=== PATIENT | male | born 1985 | race Caucasian/White ===

== ENCOUNTER 2019-08-12 19:57 | Observation (INO) | payer OTHER ==
[~2019-08-12] VITALS: Ht 179.1 cm; Wt 95.7 kg
[2019-08-12 20:37] LABS: BASO # 0.1 10^3/uL (0.0-0.2); BASO % 0.7 % (0.0-1.0); EOS # 0.2 10^3/uL (0.0-0.5); EOS % 1.3 % (0.0-3.0); HEMATOCRIT 40.7 % (42.0-52.0); LYMPH # 1.8 10^3/uL (1.5-5.0); LYMPH % 14.5 % (24.0-44.0); MEAN CORPUSCULAR HGB CONC 34.4 g/dl (32.0-36.5); MEAN CORPUSCULAR VOLUME 87.2 fl (80.0-96.0); MONO # 0.9 10^3/uL (0.0-0.8); MONO % 6.8 % (0.0-5.0); NEUTROPHILS # 9.6 10^3/uL (1.5-8.5); NEUTROPHILS % 76.4 % (36.0-66.0); PLATELET COUNT, AUTOMATED 270 10^3/uL (150-450); RED BLOOD COUNT 4.67 10^6/uL (4.30-6.10); WHITE BLOOD COUNT 12.5 10^3/uL (4.0-10.0)
--- NOTE | 2019-08-12 20:53 | REPVR ---
PROCEDURE INFORMATION: Exam: CT Head Without Contrast Exam date and time: 08/12/2019 8:28 PM Age: 34 years old Clinical indication: Coma or unconsciousness; Additional info: Unresponsive TECHNIQUE: Imaging protocol: Computed tomography of the head without contrast. Radiation optimization: All CT scans at this facility use at least one of these dose optimization techniques: automated exposure control; mA and/or kV adjustment per patient size (includes targeted exams where dose is matched to clinical indication); or iterative reconstruction. COMPARISON: No relevant prior studies available. FINDINGS: Brain: Normal. No hemorrhage. Unremarkable white matter. No mass effect. Ventricles: Normal. No ventriculomegaly. Bones/joints: Unremarkable. No acute fracture. Sinuses: Visualized sinuses are unremarkable. No fluid levels. Mastoid air cells: Visualized mastoid air cells are well aerated. Soft tissues: Unremarkable. IMPRESSION: No acute intracranial abnormality. Electronically signed by: Rayray Eldridge On 08/12/2019 20:52:31 PM
[2019-08-12] MEDS: NS 1,000 ML IV SCH (21:18)
[2019-08-12 21:34] LABS: ACETAMINOPHEN LEVEL 7.2 UG/ML (10.0-30.0); ALBUMIN 2.4 GM/DL (3.2-5.2); ALT/SGPT 23 U/L (12-78); BILIRUBIN,DIRECT < 0.1 MG/DL (0.0-0.2); BILIRUBIN,TOTAL 0.1 MG/DL (0.2-1.0); BLOOD UREA NITROGEN 7 MG/DL (7-18); CALCIUM LEVEL 5.5 MG/DL (8.5-10.1); CARBON DIOXIDE LEVEL 20 MEQ/L (21-32); CHLORIDE LEVEL 121 MEQ/L (98-107); CPK CREATINE PHOSPHOKINASE 164 U/L (39-308); CREATININE FOR GFR 0.55 MG/DL (0.70-1.30); ETHYL ALCOHOL (ETHANOL) < 0.003 % (0.000-0.010); GLOMERULAR FILTRATION RATE > 60.0 (>60); GLUCOSE, FASTING 81 MG/DL (70-100); POTASSIUM SERUM 2.8 MEQ/L (3.5-5.1); SODIUM LEVEL 147 MEQ/L (136-145); TOTAL PROTEIN 4.1 GM/DL (6.4-8.2)
[2019-08-12] MEDS ORDERED: CALCIUM GLUCONATE 1,000 MG in D5W MINI-BAG PLUS 100 ML IV ONE (21:45)
[2019-08-12] MEDS ORDERED: KCL 10MEQ/100ML SWI (KRUN) 10 MEQ in IV 1 EA IV ONE (21:45)
[2019-08-12] MEDS ORDERED: POTASSIUM CHLORIDE 10 MEQ SR TABLET PO ONE (21:45)
[2019-08-13 00:08] LABS: AMPHETAMINES LEVEL URINE NEGATIVE (NEGATIVE); BARBITURATES URINE NEGATIVE (NEGATIVE); BENZODIAZEPINES URINE NEGATIVE (NEGATIVE); CANNABINOIDS URINE NEGATIVE (NEGATIVE); COCAINE METABOLITE URINE NEGATIVE (NEGATIVE); METHADONE URINE NEGATIVE (NEGATIVE); OPIATES URINE NEGATIVE (NEGATIVE); PHENCYCLIDINE URINE NEGATIVE (NEGATIVE)
[2019-08-13] MEDS: NS 1,000 ML IV SCH (01:07)
[2019-08-13 01:18] VITALS: BP 142/80
[2019-08-13] MEDS ORDERED: POTASSIUM CHLORIDE 10 MEQ SR TABLET PO ONE (02:30)
[2019-08-13] MEDS ORDERED: MAG SULF 1GM/100ML (MAG RUN) 1 GM in IV 1 EA IV ONE (02:30)
[2019-08-13 03:11] LABS: CREATININE,RANDOM URINE 65.1 MG/DL; POTASSIUM RANDOM URINE 35.1 MEQ/L; TOTAL PROTEIN,RANDOM URINE 6.3 MG/DL (0.0-12.0)
[2019-08-13 03:17] LABS: IONIZED CALCIUM 4.8 MG/DL (4.5-5.3)
[2019-08-13 04:05] LABS: BLOOD UREA NITROGEN 8 MG/DL (7-18); CALCIUM LEVEL 8.6 MG/DL (8.5-10.1); CARBON DIOXIDE LEVEL 26 MEQ/L (21-32); CHLORIDE LEVEL 113 MEQ/L (98-107); CREATININE FOR GFR 0.99 MG/DL (0.70-1.30); FREE THYROXINE INDEX 3.1 % (1.4-3.8); GLOMERULAR FILTRATION RATE > 60.0 (>60); GLUCOSE, FASTING 139 MG/DL (70-100); MAGNESIUM LEVEL 2.4 MG/DL (1.8-2.4); SODIUM LEVEL 144 MEQ/L (136-145); T UPTAKE 34 % (33-40)
[2019-08-13 06:00] VITALS: BP 142/80
[2019-08-13 07:31] LABS: TOTAL PROTEIN 6.5 GM/DL (6.4-8.2)
[2019-08-13 07:51] LABS: BASO # 0.1 10^3/uL (0.0-0.2); BASO % 0.9 % (0.0-1.0); EOS # 0.3 10^3/uL (0.0-0.5); EOS % 2.6 % (0.0-3.0); HEMATOCRIT 42.1 % (42.0-52.0); HEMOGLOBIN 14.2 g/dl (13.5-17.5); LYMPH # 3.1 10^3/uL (1.5-5.0); LYMPH % 31.3 % (24.0-44.0); MEAN CORPUSCULAR HEMOGLOBIN 29.8 pg (27.0-33.0); MEAN CORPUSCULAR HGB CONC 33.7 g/dl (32.0-36.5); MEAN CORPUSCULAR VOLUME 88.3 fl (80.0-96.0); MONO # 1.1 10^3/uL (0.0-0.8); MONO % 10.5 % (0.0-5.0); NEUTROPHILS # 5.4 10^3/uL (1.5-8.5); NEUTROPHILS % 54.4 % (36.0-66.0); PLATELET COUNT, AUTOMATED 260 10^3/uL (150-450); RED BLOOD COUNT 4.77 10^6/uL (4.30-6.10)
--- NOTE | 2019-08-13 08:05 | REP ---
PA and lateral chest four views two PA and two lateral projections: There are no comparisons. The lung chao are clear. The cardiac size is normal. The pravin, mediastinum, and skeletal structures are unremarkable. Impression: Negative PA and lateral chest. Electronically Signed by Tone Etienne MD 08/13/2019 07:56 A
--- NOTE | 2019-08-13 08:06 | REP ---
Supine abdomen two views: The bowel gas pattern is normal. There are two calcifications in the pelvis on the the left, nonspecific, ureteral versus phleboliths. The skeletal structures and soft tissues otherwise are unremarkable. Impression: Normal bowel gas pattern. Pelvic calcifications. Electronically Signed by Tone Etienne MD 08/13/2019 07:58 A
[2019-08-13 14:00] VITALS: BP 134/70
--- NOTE | 2019-08-13 15:22 | HPE ---
DATE OF ADMISSION: 08/12/2019 CHIEF COMPLAINT: Unresponsive. HISTORY OF PRESENT ILLNESS: This is a 34-year-old male from the correctional facility who was found unresponsive today after dinner. The patient's last recollection was smoking in the bathroom. He admits to using heroin, marijuana, methamphetamine and cocaine prior to incarceration but denied any recent drug use. The patient awakened with three doses of Narcan. Blood sugar was 134. He was brought in for further evaluation. He otherwise denies any fever, chills, nausea, vomiting, diarrhea, abdominal pain. Denied any dysuria, urgency, frequency, shortness of breath, chest pain, pressure, tightness, lightheadedness, dizziness, or palpitations. He denies any upper or lower extremity weakness, sore throat, ear discharge, diplopia, blurred vision, changes in weight, changes in appetite, depression, anxiety, upper or lower extremity weakness, upper or lower extremity paresthesias. The patient denies any dysphagia, odynophagia, bright red blood per rectum, melena, black tarry stools. In the emergency room, he was found to have severe hypokalemia with a potassium of 2.8, calcium of 5.5, which was repleted. TSH was low at 0.92 with thyroid profile still pending. THe patient was afebrile, awake and alert on arrival. Urine toxicology screen was negative. UA was unremarkable. CT of the head showed no acute intracranial pathology. The patient was back to his baseline mentation on arrival. PAST MEDICAL HISTORY: None. PAST SURGICAL HISTORY: None. HOME MEDICATIONS: None. ALLERGIES: None. SOCIAL HISTORY: Smokes cigarettes. The patient has tried all drugs -- heroin, marijuana, methamphetamine, cocaine, crack. Last use was March. Previously worked in [email or web address] and [employer]. FAMILY HISTORY: Mother alive age 60 with diabetes. Father alive and well at age 60 with no medical problems. Two sisters and two brothers alive and well. REVIEW OF SYSTEMS: As per history of present illness. 12-point system otherwise negative. VITAL SIGNS: Temperature 98.4, pulse 66, respiratory rate 20, blood pressure 142/80, 98% on room air. GENERAL: The patient is awake, alert, oriented times three. Answering questions appropriately. Face is symmetric. Tongue is midline. No cervical lymphadenopathy, thyromegaly or jugular venous distention (JVD). No pharyngeal erythema, tonsillar exudate. Moist mucous membranes. LUNGS: Clear to auscultation. No wheezing, rales or rhonchi. HEART: S1, S2. Sinus rhythm. ABDOMEN: Soft, nontender, nondistended. EXTREMITIES: No cyanosis, clubbing or pitting edema. White count 12.5, hemoglobin 14, hematocrit 40, platelet count 270. Sodium 147, potassium 2.8, chloride 121, bicarbonate 20, BUN 7, creatinine 0.55, glucose 81, calcium 5.5, total bilirubin 0.1, direct bilirubin less than 0.1, AST 11, ALT 23, alkaline phosphatase 24, total CK 164, troponin 4.1, albumin 2.4, TSH 0.29. Urinalysis showed pH of 8, essentially negative. IMAGING STUDIES: CT of the head showed no acute intracranial pathology. ASSESSMENT AND PLAN: 34-year-old male, inmate at the correctional facility, brought in after being found unresponsive status post three doses of Narcan with improvement back to baseline mental status. The patient's urine drug screen was negative. Glucose level was 134. He was found to have electrolyte abnormalities with hypokalemia and hypocalcemia. The hospitalist was asked to admit and evaluate for altered mental status. IMPRESSION: 1. Acute encephalopathy, most likely related to drug ingestion. The patient admits having a history of recreational drug use with cocaine, marijuana, methamphetamine, heroin, but denied any current use of these drugs at the correctional facility. Urine drug screen is negative. 2. Electrolyte abnormalities with hypokalemia and hypocalcemia. We have checked ionized potassium, which is normalized to 4.8, potassium this morning is still pending. 3. Metabolic acidosis with bicarbonate of 20. We will recheck basic metabolic panel. The patient otherwise denies any recent history of any diarrhea or vomiting. In light of the patient's hypokalemia and metabolic acidosis, we will check for renal tubular acidosis, type 1 and type 2 distal and proximal RTA. We have asked for urine electrolytes, SPEP, UPEP to rule out rheumatologic disease with RAMIN, outpatient followup. 4. Deep vein thrombosis (DVT) prophylaxis with compression stockings. DISPOSITION: Once electrolytes are within normal limits, may discharge back to the correctional facility. Outpatient followup with primary care provider. If abnormal findings from the laboratories, the patient may need referral to nephrology for RTA. MTDD
--- NOTE | 2019-08-13 20:52 | ECGEPIP ---
[facility] - ED Test Date: 2019-08-12 Pat Name: BRENDA PERDUE Department: Room: [place] [address] Gender: Male Grocery Specialist: saray : 1985 Requested By: ELVA Robert Order Number: [id number] Reading MD: Luna Sorto Measurements Intervals [place] Rate: 90 P: 70 WV: 122 QRS: 66 QRSD: 112 T: 47 QT: 337 QTc: 413 Interpretive Statements SINUS RHYTHM MODERATE INTRAVENTRICULAR CONDUCTION DELAY NO PRIOR Electronically Signed on 08-13-2019 20:52:10 EST by Luna Sorto
[2019-08-13 21:51] VITALS: BP 134/67
[2019-08-14 04:23] LABS: POTASSIUM 24 HOUR URINE 91.9 MEQ/24HR (25-125); POTASSIUM URINE 75.1 MEQ/L
[2019-08-14 06:00] VITALS: BP 114/66
[2019-08-14 06:30] LABS: BASO # 0.1 10^3/uL (0.0-0.2); BASO % 0.9 % (0.0-1.0); EOS # 0.5 10^3/uL (0.0-0.5); EOS % 4.1 % (0.0-3.0); HEMATOCRIT 42.8 % (42.0-52.0); HEMOGLOBIN 14.4 g/dl (13.5-17.5); LYMPH % 33.5 % (24.0-44.0); MEAN CORPUSCULAR HGB CONC 33.6 g/dl (32.0-36.5); MEAN CORPUSCULAR VOLUME 89.2 fl (80.0-96.0); MONO % 8.6 % (0.0-5.0); NEUTROPHILS # 6.2 10^3/uL (1.5-8.5); NEUTROPHILS % 52.5 % (36.0-66.0); PLATELET COUNT, AUTOMATED 272 10^3/uL (150-450); WHITE BLOOD COUNT 11.8 10^3/uL (4.0-10.0)
[2019-08-14 07:02] LABS: ALBUMIN 3.5 GM/DL (3.2-5.2); ALT/SGPT 32 U/L (12-78); BILIRUBIN,TOTAL 0.2 MG/DL (0.2-1.0); BLOOD UREA NITROGEN 19 MG/DL (7-18); CALCIUM LEVEL 8.5 MG/DL (8.5-10.1); CARBON DIOXIDE LEVEL 28 MEQ/L (21-32); CHLORIDE LEVEL 113 MEQ/L (98-107); CREATININE FOR GFR 1.04 MG/DL (0.70-1.30); GLOMERULAR FILTRATION RATE > 60.0 (>60); GLUCOSE, FASTING 96 MG/DL (70-100); POTASSIUM SERUM 4.2 MEQ/L (3.5-5.1); SODIUM LEVEL 145 MEQ/L (136-145); TOTAL PROTEIN 6.8 GM/DL (6.4-8.2)
--- NOTE | 2019-08-14 08:45 | DS.PDOC ---
Discharge Summary General Date of Admission Aug 12, 2019 at 23:27 Date of Discharge 08/14/19 Discharge Summary PROCEDURES PERFORMED DURING STAY: [None]. DISCHARGE DIAGNOSES: 1. Illicit drug abuse HISTORY OF PRESENT ILLNESS: 34-year-old male from the correctional facility who was found unresponsive today after dinner. The patient's last recollection was smoking in the bathroom. He admits to using heroin, marijuana, methamphetamine and cocaine prior to incarceration but denied any recent drug use. The patient awakened with three doses of Narcan. Blood sugar was 134. He was brought in for further evaluation. He otherwise denied any fever, chills, nausea, vomiting, diarrhea, abdominal pain. Denied any dysuria, urgency, frequency, shortness of breath, chest pain, pressure, tightness, lighthead edness, dizziness, or palpitations. He denied any upper or lower extremity weakness, sore throat, ear discharge, diplopia, blurred vision, changes in weight, changes in appetite, depression, anxiety, upper or lower extremity weakness, upper or lower extremity paresthesias. The patient denied any dysphagia, odynophagia, bright red blood per rectum, melena, black tarry stools. In the emergency room, he was found to have severe hypokalemia with a potassium of 2.8, calcium of 5.5, which was repleted. The patient was afebrile, awake and alert on arrival. Urine toxicology screen was negative. UA was unremarkable. CT of the head showed no acute intracranial pathology. The patient was back to his baseline mentation on arrival. HOSPITAL COURSE: Patient admitted for further evaluation and treatment. Electrolytes were repleted and remained stable. Workup was otherwise remarkable. Patient had no further medical complaints. Patient discharged back to correctional facility with outpatient follow up. DISCHARGE MEDICATIONS: Please see below. ALLERGIES: Please see below. PHYSICAL EXAMINATION ON DISCHARGE: VITAL SIGNS: Please see below. General: NAD, lying comfortably in bed HEENT: NC/AT, EOMI Lungs: CTA B/L Heart: +S1S2, RRR Abd: soft, NT, +BS Ext: no edema LABORATORY DATA: Please see below. ACTIVITY: [As tolerated]. DIET: Regular DISCHARGE PLAN: Return to correctional facility. DISCHARGE INSTRUCTIONS: 1. Abstain from illicit drug use. 2. Follow up PCP in 3-5 days. DISCHARGE CONDITION: [Stable]. TIME SPENT ON DISCHARGE: 32 minutes. Vital Signs/I&Os Vital Signs Date Time Temp Pulse Resp B/P (MAP) Pulse Ox O2 Delivery O2 Flow Rate FiO2 08/14/19 06:00 98.6 72 18 114/66 (82) 98 Room Air I&O- Last 24 Hours up to 6 AM 08/14/19 05:59 Intake Total 1210 ml Output Total 300 ml Balance 910 ml Laboratory Data Labs 24H Laboratory Tests 2 08/14/19 03:40: Urine Total Volume (Protein) 1225, Urine Potassium 24 Hour 91.9 08/14/19 06:16: Immature Granulocyte % (Auto) 0.4, Neutrophils (%) (Auto) 52.5, Lymphocytes (%) (Auto) 33.5, Monocytes (%) (Auto) 8.6H, Eosinophils (%) (Auto) 4.1H, Basophils (%) (Auto) 0.9, Neutrophils # (Auto) 6.2, Lymphocytes # (Auto) 4.0, Monocytes # (Auto) 1.0H, Eosinophils # (Auto) 0.5, Basophils # (Auto) 0.1, Nucleated Red Blood Cells % (auto) 0.0, Anion Gap 4L, Glomerular Filtration Rate > 60.0, Calcium Level 8.5, Total Bilirubin 0.2#, Aspartate Amino Transf (AST/SGOT) 11, Alanine Aminotransferase (ALT/SGPT) 32, Alkaline Phosphatase 32L, Total Protein 6.8#, Albumin 3.5#, Albumin/Globulin Ratio 1.06 CBC/BMP Laboratory Tests 08/14/19 06:16 Discharge Medications No Active Prescriptions or Reported Meds Allergies Coded Allergies: No Known Allergies (Unverified , 08/12/19) CELESTINO TOMPKINS MD Aug 14, 2019 08:45
[2019-08-14 10:15] LABS: TOTAL 25(OH) VITAMIN D 25.4 NG/ML (30.0-100.0)
[2019-08-14 10:27] LABS: HEPATITIS B SURFACE ANTIGEN NEGATIVE (NEGATIVE)
[2019-08-14 10:54] LABS: HEPATITIS C VIRUS ABY INDEX < 0.0 INDEX (<0.8)
[2019-08-14 10:55] LABS: HEPATITIS B CORE ANTIBODY IGM NEGATIVE (NEGATIVE)
[2019-08-14 10:56] LABS: HEPATITIS A ANTIBODY IGM NEGATIVE (NEGATIVE)
[2019-08-15 13:05] LABS: ALBUMIN 4.04 GM/DL (3.29-5.55); ALBUMIN % 62.2 % (55.8-66.1); ALPHA-1-GLOBULIN % 4.1 % (2.9-4.9); ALPHA-1-GLOBULINS 0.27 GM/DL (0.17-0.41); ALPHA-2-GLOBULINS 0.59 GM/DL (0.42-0.99); ALPHA-2-GLOBULINS % 9.1 % (7.1-11.8); BETA-1-GLOBULINS 0.34 GM/DL (0.28-0.60); BETA-1-GLOBULINS % 5.2 % (4.7-7.2); BETA-2-GLOBULINS 0.31 GM/DL (0.19-0.55); BETA-2-GLOBULINS % 4.7 % (3.2-6.5); GAMMA GLOBULIN % 14.7 % (11.1-18.8); GAMMA GLOBULINS 0.96 GM/DL (0.65-1.58)
[2019-08-31 10:30] LABS: ANTINUCLEAR ANTIBODIES DIRECT Negative (Negative); ARSENIC BLOOD 7 ug/L (2-23); LEAD BLOOD 1 ug/dL (0-4); MERCURY BLOOD 1.4 ug/L (0.0-14.9)
== END 2019-08-15 11:06 | disposition home or self-care (01) ==
LOC: M ED 19:57 → EDBD 19:57 → M ED INP 19:58 → UNDOADMOB 19:58 → M ED INP 23:27 → UNDOADMIN 23:27 → UNDOADMOB 23:27 → M ED INP 23:27 → ENRESERV 23:36 → M MSPAV 08-13 01:17 → M ED INP 08-13 01:17 → UNDOADMOB 08-13 01:17 → M MSPAV 08-13 01:17 → UNDODISOB 08-14 12:33 → UNDODISIN 08-14 12:33 → M MSPAV 08-15 11:05 → M ED INP 08-15 11:05 → UNDODISOB 08-15 11:06
PROVIDERS: ADMIT General Practice; ATTEND General Practice
DX: F19.10 Other psychoactive substance abuse, uncomplicated (principal); G93.40 Encephalopathy, unspecified; E87.6 Hypokalemia; E87.2 Acidosis; E83.51 Hypocalcemia; I45.4 Nonspecific intraventricular block; F17.210 Nicotine dependence, cigarettes, uncomplicated; F19.11 Other psychoactive substance abuse, in remission
CPT/HCPCS: 36415; 70450; 71046; 74018; 80048; 80053; 80076; 80307; 81050; 82175; 82306; 82330; 82550; 82570; 83520; 83655; 83735; 83825; 84133; 84156; 84165; 84166; 84300; 84436; 84443; 84479; 85025; 86038; 86705; 86709; 86803; 87340; 93005; 93041; 94760; 96361; 96365; 96366; 96367; 99285; G0480; J0610